=== PATIENT | female | born 1950 | race Caucasian/White ===

== ENCOUNTER → 2023-07-24 14:24 | Outpatient (REF) | payer MEDICARE, OTHER, SELFPAY | LOC: RCS 14:24 | PROVIDERS: ATTENDING PHYSICIAN Internal Medicine Cardiovascular Disease; FAMILY PHYSICIAN Family Medicine | DX: I42.0 Dilated cardiomyopathy (principal) | CPT/HCPCS: 93306 ==

== ENCOUNTER → 2024-11-07 11:53 | Outpatient (REF) | payer MEDICARE, OTHER, SELFPAY ==
[2024-11-07 12:43] LABS: Hematocrit 38.1 % (37.0-47.0); Hemoglobin 11.8 g/dL (12.0-16.0); Mean Corp Hgb Conc. 31.0 g/dL (33.0-37.0); Mean Corpuscular Volume 79.2 fL (81.0-99.0); Nucleated Red Blood Cells % 0 %; Platelet Count 216 10^3/uL (130-400); Red Cell Dist. Width 17.4 % (11.5-14.5)
[2024-11-07 13:07] LABS: Vitamin D, 25-OH*** 46.3 ng/mL (30-80)
[2024-11-07 13:09] LABS: ALT (SGPT) 36 U/L (0-35); AST (SGOT) 69 U/L (14-36); Albumin 4.7 g/dl (3.5-5.0); Alkaline Phosphatase 147 U/L (38-126); Blood Urea Nitrogen 17 mg/dl (7-17); Calcium 10.0 mg/dl (8.4-10.2); Carbon Dioxide 24 mmol/L (22-30); Chloride 105 mmol/L (98-107); HDL Cholesterol 41 mg/dl; LDL Cholesterol, Calculated 33 mg/dl; Potassium 5.1 mmol/L (3.5-5.1); Sodium 138 mmol/L (135-145); Total Protein 7.8 g/dl (6.3-8.2); Very Low Density Lipoprotein 40 mg/dl (0-30); eGFR 47.50
[2024-11-07 13:27] LABS: Glucose 45 mg/dl (70-99)
[2024-11-07 14:23] LABS: Glycohemoglobin (HgbA1c) 6.4 % (4.0-5.6)
== END ==
LOC: REG 11:53
PROVIDERS: ATTENDING PHYSICIAN Family Medicine
DX: E11.22 Type 2 diabetes mellitus with diabetic chronic kidney disease (principal); I50.9 Heart failure, unspecified; I12.9 Hypertensive chronic kidney disease with stage 1 through stage 4 chronic kidney disease, or unspecified chronic kidney disease; R06.02 Shortness of breath; R42 Dizziness and giddiness; Z79.899 Other long term (current) drug therapy
CPT/HCPCS: 36415; 80053; 80061; 82306; 83036; 83880; 84100; 85025; 93005

== ENCOUNTER 2024-11-07 12:40 | Emergency (ER) | payer MEDICARE, OTHER, SELFPAY ==
[2024-11-07 12:45] LABS: Glucose - Point of Care 64 mg/dl (70-99)
[2024-11-07 12:47] VITALS: BP 133/63
--- NOTE | 2024-11-07 13:02 | EDRN ---
pt sts she does not want to stay. she feels better after the oj
explained to pt she should be eval . pt sts i dont want to stay I have a hair appt at 2pm
repeated pts bld sugar again and it was 67. explained to pt I can't have her leave it wont be safe.
pt given crackers and more OJ
[2024-11-07 13:09] LABS: Glucose - Point of Care 67 mg/dl (70-99)
[2024-11-07 13:52] VITALS: BP 151/86
--- NOTE | 2024-11-07 14:00 | ED.ATTNOTE ---
ED Attending Note
ED Attending Note
ED Attending Note:
I attempted to evaluate the patient, however, when I went to the patient's room, she was not present and I was informed from the nursing staff that the patient wanted to leave before being evaluated by a medical provider and her ready left the
department prior to my opportunity to speak to her. I did review patient's blood work that was done today which showed a blood sugar of 45. It was reported that the patient was able to eat and drink and bring her blood sugar up to a normal range.
It was reported that patient was well-appearing and adamant about leaving before any medical screening exam
-
Portions of this chart may have been created with voice recognition software.� Occasional wrong word or��sound alike� substitutions may have occurred due to the inherent limitations of voice recognition software.
== END 2024-11-07 13:59 ==
LOC: EMR 12:40
PROVIDERS: EMERGENCY PHYSICIAN Emergency Medicine
DX: R42 Dizziness and giddiness (principal); E11.9 Type 2 diabetes mellitus without complications
CPT/HCPCS: 82962